=== PATIENT | male | born 1990 | race Caucasian/White ===

== ENCOUNTER 2017-12-31 03:51 | Emergency (ER) | payer MEDICAID ==
[2017-12-31] MEDS ORDERED: Triple Antibiotic 0.94 gm Pkt TP ONE (04:47)
--- NOTE | 2017-12-31 04:55 | ED Physician Chart ---
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 with deep rt eye brow laceration Allergies:: Allergies Allergy/AdvReac Type Severity Reaction Status Date / Time No Known Allergies Allergy Verified 12/31/17 04:11 Vitals:: Vital Signs - 8 hr 12/31/17 03:55 Temp 97.8 F HR 102 RR 18 BP 107/78 O2 Sat % 96 ED Review of Systems - Review of Systems General/Constitutional: No fever, No chills Skin: Skin lesions Head: No headache Eyes: No loss of vision ENT: No earache Neck: No neck pain Cardio Vascular: No chest pain Pulmonary: No SOB GI: No nausea Musculoskeletal: No bone or joint pain Endocrine: No polyuria Psychiatric: No anxiety Hematopoietic: No bruising Allergic/Immuno: No urticaria Neurological: No focal symptoms ED Past Medical History - Past Medical History Past Medical History: Seizures Family Medical History - Family Member Mother History Unknown: Yes ED Physical Exam - Physical Examination General/Constitutional: Alert, No distress Eyes: Lids, conjuctiva normal Other Skin comments:: 1.5 inches rt eye brow laceration deep jaggered sutured in interrupted mattress sutures after infiltration with 10 ccs 1 percent lidocaine and betadyne prep pt tolerated the procedure well Neck: Nontender Respiratory: Nl effort/Exclusion Cardio Vascular: RRR GI: No tenderness/rebounding/guarding : No CVA tenderness Extremities: No tenderness or effusion Neuro/Psych: Alert/oriented ED Assessment - Assessment General Assessment: seizure fall rt eye laceration s/p suture repair ED Septic Shock - . Is Septic Shock (SBP<90, OR Lactate>4 mmol\L) present?: No - <6hrs of presentation: Vital Signs: Vital Signs - 8 hr 12/31/17 03:55 Temp 97.8 F HR 102 RR 18 BP 107/78 O2 Sat % 96 ED Reassessment (Disposition) - Reassessment Reassessment Condition:: Improved - Diagnosis Diagnosis:: seizure fall laceration rt eye brow s/p repair - Patient Disposition Discharge/Transfer:: Home Condition at Disposition:: Stable
[2017-12-31] MEDS ORDERED: Triple Antibiotic 0.94 gm Pkt TP STA (04:56)
--- NOTE | 2017-12-31 08:25 | Diagnostic Imaging Report ---
CT scan of the brain without contrast History: Headache, trauma Total DLP equals 662 CTDI equals 34.1 Axial sections were obtained from the base of the skull to the vertex. Soft tissue swelling noted over the right frontal and right and periorbital region of the skull. There is a normal ventricular system size. No focal parenchymal lesions are seen. No evidence of any mass effect or shift of midline structures. No extra-axial masses or abnormal fluid collections. Impression: 1. No acute intracerebral abnormalities 2. Soft tissue swelling over the right. Periorbital and right frontal regions of the skull.
== END 2017-12-31 04:58 | disposition home or self-care (01) ==
LOC: ER 03:51
DX: S01.111A Laceration without foreign body of right eyelid and periocular area, initial encounter (principal); R56.9 Unspecified convulsions; W06.XXXA Fall from bed, initial encounter; Y93.89 Activity, other specified; Y92.89 Other specified places as the place of occurrence of the external cause; Y99.8 Other external cause status
CPT/HCPCS: 36415-UA; 70450-TC; 80185-TC; Z7610

== ENCOUNTER 2018-01-09 15:54 | Emergency (ER) | payer MEDICAID ==
--- NOTE | 2018-01-09 16:49 | ED Physician Chart ---
ED Chief Complaint/HPI - Patient Information Date Seen:: 01/09/18 Time Seen:: 16:00 Chief Complaint:: suture removal History of Present Illness:: 2 weeks ago patient fell out of bed sustaining a right eyebrow laceration. Laceration was sutured here. Patient is here for suture removal. Allergies:: Allergies Allergy/AdvReac Type Severity Reaction Status Date / Time No Known Allergies Allergy Verified 12/31/17 04:11 Historian:: Family Member Review:: Nurse's Note Reviewed ED Review of Systems - Review of Systems General/Constitutional: No fever, No chills, No weight loss, No weakness, No diaphoresis, No edema, No loss of appetite Skin: No skin lesions, No rash, No bruising Head: No headache, No light-headedness Eyes: No loss of vision, No pain, No diplopia ENT: No earache, No nasal drainage, No sore throat, No tinnitus Neck: No neck pain, No swelling, No thyromegaly, No stiffness, No mass noted Cardio Vascular: No chest pain, No palpitations, No PND, No orthopnea, No edema Pulmonary: No SOB, No cough, No sputum, No wheezing GI: No nausea, No vomiting, No diarrhea, No pain, No melena, No hematochezia, No constipation, No hematemesis G/U: No dysuria, No frequency, No hematuria Musculoskeletal: No bone or joint pain, No back pain, No muscle pain Endocrine: No polyuria, No polydipsia Psychiatric: No prior psych history, No depression, No anxiety, No suicidal ideation Hematopoietic: No bruising, No lymphadenopathy Allergic/Immuno: No urticaria, No angioedema Neurological: No syncope, No focal symptoms, No weakness, No paresthesia, No headache, No seizure, No dizziness, No confusion, No vertigo ED Past Medical History - Past Medical History Past Medical History: Seizures, Other (autism) Family History: Other (mother has COPD) Social History: Non Smoker, No Alcohol Surgical History: other (exploratory craniotomy) Psychiatricy History: Other (autism) Medication: Reviewed Family Medical History - Family Member Mother History Unknown: Yes Living Status: Still Living Hx Family COPD: Yes ED Physical Exam - Physical Examination General/Constitutional: Awake, Well-developed, well-nourished, Alert, No distress, GCS 15, Non-toxic appearing, Ambulatory Head: Atraumatic Eyes: Lids, conjuctiva normal, PERRL Other Skin comments:: 2-1/2 cm sutured right eyebrow laceration; no signs of infection ENMT: External ears, nose nl, Nasal exam nl Neck: No JVD, No nuchal rigidity, No bruit, No mass, No stridor Respiratory: Nl effort/Exclusion, Clear to Auscultation, No Wheeze/Rhonchi/Rales Cardio Vascular: RRR, No murmur, gallop, rubs, NL S1 S2 GI: No tenderness/rebounding/guarding, No organomegaly : No CVA tenderness Extremities: Normal digits & nails Neuro/Psych: Mood normal, Normal gait, No focal deficits Misc: Normal back, No paraspinal tenderness ED Assessment - Procedures Procedures:: After skin cleansed with alcohol swab black interrupted sutures removed with curved hemostat and Iris scissors which had been cleaned with Betadine solution. ED Septic Shock - . Is Septic Shock (SBP<90, OR Lactate>4 mmol\L) present?: No ED Reassessment (Disposition) - Reassessment Reassessment Condition:: Improved - Diagnosis Diagnosis:: Suture removal right eyebrow laceration; autism - Aftercare/Follow up Instructions Aftercare/Follow-Up Instructions:: Refer to Discharge Instructions - Patient Disposition Discharge/Transfer:: Home Condition at Disposition:: Stable, Improved
== END 2018-01-09 16:48 | disposition home or self-care (01) ==
LOC: ER 15:54
DX: S01.111D Laceration without foreign body of right eyelid and periocular area, subsequent encounter (principal); W06.XXXD Fall from bed, subsequent encounter